=== PATIENT | female | born 1970 | race Caucasian/White ===

== ENCOUNTER 2019-03-28 13:22 | Emergency (ER) | payer OTHER ==
[~2019-03-28] VITALS: Ht 167.6 cm; Wt 102.1 kg
[~2019-03-28 13:22] MED LIST: BUPR150T8 PO; CLON1TAB11 PO; CYCL10TA2 PO; DICY10CA53 PO; GABA800T PO; LISI-334 PO; METF500T16 PO; METH20TA PO; METO10TA81 PO; METO50TA6 PO; ONDA4TAB7 PO; PANT40TA77 PO; PRED20TA PO; SERT100T PO; SUCR1TAB35 PO; TIZA4CAP3 PO; TRAM50TA PO; VENL75CA PO
--- NOTE | 2019-03-28 13:58 | PHYS DOC ---
Past Medical History Past Medical History: Asthma, Bipolar, Diabetes-Type II, Fibromyalgia, Hypertension, Other Additional Past Medical Histor: gastroporesis, overactive bladder Past Surgical History: , Other Additional Past Surgical Histo: ears, abd, left breast, right ACL and meniscus, Alcohol Use: None Drug Use: None Adult General Chief Complaint Chief Complaint: DIARRHEA HPI HPI 49-year-old female presenting to the emergency department today with a headache and watery stools over the past 2 days. She is chronically on doxycycline for the past 2 years approximately that she has been taking daily. She denies abdominal pain. She has had a few episodes of vomiting that is nonbilious and nonbloody. She denies fevers or chills. Her headache is similar to previous headaches and was not sudden in onset. She denies any neuro changes. Review of systems is negative for chest pain shortness of breath abdominal pain fevers chills. All other review of systems is negative unless otherwise noted in history of present illness. ED course: 49-year-old female presenting the emergency room today with headache and diarrhea. vitals show mild htn. Patient was given Reglan and Benadryl with fluids. Headache did not improve. Repeat dosing of Reglan and Benadryl. CT ab domen pelvis is negative. Head CT is negative. Workup unremarkable here in the emergency department. We'll discharge home to follow up with PCP in one to 2 days.The patient has been examined and was not found to have an emergency medical condition. The patient was then discharged home in stable condition to follow up with their primary care physician over the next 1-2 days. They were to return if their symptoms worsened or if they were concerned for any reason. They were also instructed to return to the emergency department if they were unable to get the recommended and appropriate follow-up. [id number] discharge instructions and return precautions were given. Patient's questions were an swered to their satisfaction. Patient is comfortable with plan. Review of Systems Review of Systems SEE ABOVE. Current Medications Current Medications Current Medications Medications (Trade) Dose Ordered Sig/Ruby Start Time Stop Time Status Last Admin Dose Admin Dexamethasone Sodium Phosphate (Decadron) 10 mg 1X ONCE 03/28/19 16:00 03/28/19 16:01 DC 03/28/19 16:03 10 MG Diphenhydramine HCl (Benadryl) 25 mg 1X ONCE 03/28/19 16:15 03/28/19 16:16 DC 03/28/19 15:50 25 MG Ketorolac Tromethamine (Toradol 15mg Vial) 15 mg 1X ONCE 03/28/19 16:15 03/28/19 16:16 DC 03/28/19 15:50 15 MG Metoclopramide HCl (Reglan Vial) 10 mg 1X ONCE 03/28/19 16:15 03/28/19 16:16 DC 03/28/19 15:50 10 MG Metoclopramide HCl (Reglan) 10 mg 1X ONCE 03/28/19 14:30 03/28/19 14:31 DC 03/28/19 14:22 10 MG Sodium Chloride 500 ml @ 500 mls/hr 1X ONCE 03/28/19 14:00 03/28/19 14:59 DC 03/28/19 14:22 500 MLS/HR Allergies Allergies Allergies Coded Allergies Type Severity Reaction Last Updated Verified hydralazine Allergy Unknown 03/28/19 Yes isosorbide Allergy Unknown 03/28/19 Yes sumatriptan Allergy Unknown 03/28/19 Yes zolmitriptan Allergy Unknown 03/28/19 Yes Physical Exam Physical Exam SEE ABOVE Constitutional: Well developed, well nourished, no acute distress, non-toxic appearance. [] HENT: Normocephalic, atraumatic, bilateral external ears normal, oropharynx moist, no oral exudates, nose normal. [] Eyes: PERRLA, EOMI, conjunctiva normal, no discharge. [] Neck: Normal range of motion, no tenderness, supple, no stridor. [] Cardiovascular:Heart rate regular rhythm, no murmur [] Lungs & Thorax: Bilateral breath sounds clear to auscultation [] Abdomen: Bowel sounds normal, soft, no tenderness, no masses, no pulsatile masses. nondistended. neg mcburneys point. neg murphys sign. Skin: Warm, dry, no erythema, no rash. [] Back: No tenderness, no CVA tenderness. [] Extremities: No tenderness, no cyanosis, no clubbing, ROM intact, no edema. [] Neurologic: Alert and oriented X 3, normal motor function, normal sensory fu nction, no focal deficits noted. [] Psychologic: Affect normal, judgement normal, mood normal. [] Current Patient Data Vital Signs Vital Signs Date Time Temp Pulse Resp B/P (MAP) Pulse Ox O2 Delivery O2 Flow Rate FiO2 03/28/19 15:30 61 15 157/94 (115) 98 03/28/19 13:50 98.1 98.1 Lab Values Laboratory Tests Test 03/28/19 14:05 03/28/19 15:45 White Blood Count 7.1 x10^3/uL (4.0-11.0) Red Blood Count 4.42 x10^6/uL (3.50-5.40) Hemoglobin 13.6 g/dL (12.0-15.5) Hematocrit 40.2 % (36.0-47.0) Mean Corpuscular Volume 91 fL (79-100) Mean Corpuscular Hemoglobin 31 pg (25-35) Mean Corpuscular Hemoglobin Concent 34 g/dL (31-37) Red Cell Distribution Width 14.4 % (11.5-14.5) Platelet Count 285 x10^3/uL (140-400) Neutrophils (%) (Auto) 64 % (31-73) Lymphocytes (%) (Auto) 23 % (24-48) L Monocytes (%) (Auto) 6 % (0-9) Eosinophils (%) (Auto) 6 % (0-3) H Basophils (%) (Auto) 1 % (0-3) Neutrophils # (Auto) 4.6 x10^3/uL (1.8-7.7) Lymphocytes # (Auto) 1.6 x10^3/uL (1.0-4.8) Monocytes # (Auto) 0.4 x10^3/uL (0.0-1.1) Eosinophils # (Auto) 0.5 x10^3/uL (0.0-0.7) Basophils # (Auto) 0.1 x10^3/uL (0.0-0.2) Sodium Level 137 mmol/L (136-145) Potassium Level 3.3 mmol/L (3.5-5.1) L Chloride Level 100 mmol/L (98-107) Carbon Dioxide Level 26 mmol/L (21-32) Anion Gap 11 (6-14) Blood Urea Nitrogen 18 mg/dL (7-20) Creatinine 0.9 mg/dL (0.6-1.0) Estimated GFR (Cockcroft-Gault) 66.0 BUN/Creatinine Ratio 20 (6-20) Glucose Level 91 mg/dL (70-99) Calcium Level 10.0 mg/dL (8.5-10.1) Total Bilirubin 0.3 mg/dL (0.2-1.0) Aspartate Amino Transferase (AST) 20 U/L (15-37) Alanine Aminotransferase (ALT) 19 U/L (14-59) Alkaline Phosphatase 158 U/L (46-116) H Total Protein 7.3 g/dL (6.4-8.2) Albumin 3.4 g/dL (3.4-5.0) Albumin/Globulin Ratio 0.9 (1.0-1.7) L Lipase 78 U/L (73-393) Serum Test, Qualitative Negative (NEG) Urine Collection Type Unknown Urine Color Yellow Urine Clarity Clear Urine pH 5.5 Urine Specific [place] 1.025 Urine Protein Negative mg/dL (NEG-TRACE) Urine Glucose (UA) Negative mg/dL (NEG) Urine Ketones (Stick) Negative mg/dL (NEG) Urine Blood Negative (NEG) Urine Nitrite Negative (NEG) Urine Bilirubin Negative (NEG) Urine Urobilinogen Dipstick 1.0 mg/dL (0.2 mg/dL) Urine Leukocyte Esterase Trace (NEG) Urine RBC Rare /HPF (0-2) Urine WBC 1-4 /HPF (0-4) Urine Squamous Epithelial Cells Few /LPF Urine Bacteria Few /HPF (0-FEW) Laboratory Tests 03/28/19 14:05 Laboratory Tests 03/28/19 14:05 EKG EKG [] Radiology/Procedures Radiology/Procedures [] Course & Med Decision Making Course & Med Decision Making Pertinent Labs and Imaging studies reviewed. (See chart for details) [] Dragon Disclaimer Dragon Disclaimer This electronic medical record was generated, in whole or in part, using a voice recognition dictation system. Departure Departure Impression: Primary Impression: Diarrhea Additional Impression: Headache Disposition: 01 HOME, SELF-CARE Condition: STABLE Referrals: DONALDO DURAN MD (PCP) Patient Instructions: Diarrhea, General Headache Without Cause Additional Instructions: Thank you for allowing us to participate in your care today. Return to the emergency department you have any new or worsening symptoms, or if you are concerned for any reason. Return to emergency department if you have any new or concerning symptoms including but not limited to fever, chills, nausea, vomiting, intractable pain, any new rashes, chest pain, shortness of air, uncontrolled bleeding, difficulty breathing, and/or vision loss. Follow up with your primary care physician within 1-2 days. Call your Primary Doctor tomorrow and inform them of your visit today. If you do not have a primary care provider we are happy to provide you with a list of our primary care providers contact information. This condition should be evaluated by your primary care physician and any recommended consulting services for continued management within 2 days after discharge. If at any time, you are having difficulty getting into your primary care doctor or a specialist, return to the emergency department. Problem Qualifiers SHERWIN THOMPSON MD Mar 28, 2019 13:58
[2019-03-28] MEDS ORDERED: IV NORMAL SALINE 500ML BAG 500 ML IV ONE (14:00)
[2019-03-28 14:13] LABS: BASO # 0.1 x10^3/uL (0.0-0.2); BASO % 1 % (0-3); EOS # 0.5 x10^3/uL (0.0-0.7); EOS % 6 % (0-3); HEMATOCRIT 40.2 % (36.0-47.0); HEMOGLOBIN 13.6 g/dL (12.0-15.5); LYMPH # 1.6 x10^3/uL (1.0-4.8); LYMPH % 23 % (24-48); MEAN CORPUSCULAR HEMOGLOBIN 31 pg (25-35); MEAN CORPUSCULAR HGB CONC 34 g/dL (31-37); MEAN CORPUSCULAR VOLUME 91 fL (79-100); MONO # 0.4 x10^3/uL (0.0-1.1); MONO % 6 % (0-9); NEUT # 4.6 x10^3/uL (1.8-7.7); NEUT % 64 % (31-73); PLATELET COUNT 285 x10^3/uL (140-400); RED BLOOD COUNT 4.42 x10^6/uL (3.50-5.40); RED CELL DISTRIBUTION WIDTH 14.4 % (11.5-14.5); WHITE BLOOD COUNT 7.1 x10^3/uL (4.0-11.0)
[2019-03-28 14:22] LABS: CREATININE 0.9 mg/dL (0.6-1.0); POTASSIUM 3.3 mmol/L (3.5-5.1)
[2019-03-28 14:24] LABS: PREG TEST PT QUAL NEGATIVE (NEG)
[2019-03-28 14:28] LABS: ALBUMIN 3.4 g/dL (3.4-5.0); ALBUMIN/GLOBULIN RATIO 0.9 (1.0-1.7); TOTAL BILIRUBIN 0.3 mg/dL (0.2-1.0); TOTAL PROTEIN 7.3 g/dL (6.4-8.2)
[2019-03-28] MEDS ORDERED: diphenhydrAMINE 50 MG/ML VIAL IVP ONE ×2 (14:30→16:15)
[2019-03-28] MEDS ORDERED: METOCLOPRAMIDE 10 MG TABLET. PO ONE (14:30)
--- NOTE | 2019-03-28 14:37 | RAD ---
CT abdomen pelvis without contrast. HISTORY: Diarrhea and vomiting CT scan the abdomen pelvis was done without contrast. Comparison is made with a study from January 2015. Right lung bases clear. There is elevation of the left diaphragm. There is atelectasis in the left lung base although infiltrate is possible. There is no pleural effusion. A liver lesion is not identified. The patient's had a cholecystectomy. Spleen and adrenal glands are normal. There is a tiny calculus at the lower pole of the left kidney. There is no hydronephrosis in the kidneys. There is a smaller right renal calculus as well. There is no adenopathy. There is no free air. Patient's had a gastric bypass. There is no bowel obstruction. Appendix is normal. Uterus and ovaries are unremarkable. There is an old lumbar compression fracture. 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 IMPRESSION: 1. Elevated left diaphragm. 2. Atelectasis left lung base. 3. Previous gastric bypass. 4. No bowel obstruction. 5. Tiny intrarenal calculi without a ureteral calculus or hydronephrosis. Electronically signed by: Vipin Gordillo MD (03/28/2019 2:34 PM) [facility]
[2019-03-28 15:30] VITALS: BP 157/94
[2019-03-28 15:53] LABS: BILIRUBIN,URINE NEGATIVE (NEG); CLARITY,URINE CLEAR; COLOR,URINE YELLOW; NITRITE,URINE NEGATIVE (NEG); PH,URINE 5.5; PROTEIN,URINE NEGATIVE (NEG-TRACE)
[2019-03-28] MEDS ORDERED: DEXAMETHASONE SOD PHOS 20 MG/5 ML VIAL. IV ONE (16:00)
[2019-03-28 16:15] LABS: BACTERIA,URINE FEW /HPF (0-FEW); RBC,URINE RARE /HPF (0-2); SQUAMOUS EPITHELIAL CELL,UR FEW /LPF
[2019-03-28] MEDS ORDERED: KETOROLAC 15 MG/ML VIAL. IV ONE (16:15)
[2019-03-28] MEDS ORDERED: METOCLOPRAMIDE HCL 10 MG/2 ML VIAL. IV ONE (16:15)
--- NOTE | 2019-03-28 16:35 | RAD ---
CT HEAD WO CONTRAST Indication: Headache Exposure: One or more of the following individualized dose reduction techniques were utilized for this examination: 1. Automated exposure control 2. Adjustment of the mA and/or kV according to patient size 3. Use of iterative reconstruction technique. Technique: Standard imaging without intravenous contrast. No prior study for comparison. No evidence of acute intracranial hemorrhage, mass effect, midline shift or abnormal extra-axial fluid collection. Monae-white matter distinction is intact. The ventricle and sulci appear unremarkable. Orbits appear symmetric. No significant scalp swelling or hematoma. Partially visualized sinuses are clear. No bone destruction. IMPRESSION: No evidence of acute intracranial hemorrhage. Electronically signed by: Surendra Brewster MD (03/28/2019 4:32 PM) [facility]
== END 2019-03-28 19:00 | disposition home or self-care (01) ==
LOC: ER 13:22
DX: R19.7 Diarrhea, unspecified (principal); R51 Headache; E11.9 Type 2 diabetes mellitus without complications; I10 Essential (primary) hypertension; F31.9 Bipolar disorder, unspecified; J45.909 Unspecified asthma, uncomplicated; Z88.8 Allergy status to other drugs, medicaments and biological substances
CPT/HCPCS: 36415; 70450; 74176; 80053; 81001; 83690; 84703; 85025; 87086; 96361; 96374; 96375; 96376; 99285; J1100; J1200; J1885; J2765; J7040; J8597

== ENCOUNTER 2019-05-04 16:31 | Emergency (ER) | payer OTHER, MEDICAID ==
[~2019-05-04] VITALS: Ht 167.6 cm; Wt 95.3 kg
[~2019-05-04 16:31] MED LIST changes: -CLON1TAB11 PO; +CLONAZEPAM1 MG PO
[2019-05-04] MEDS ORDERED: HYDROcodone/APAP 5/325MG 1 TAB TABLET PO ONE (17:45)
--- NOTE | 2019-05-04 18:21 | RAD ---
Three-view right ankle and 3V left wrist HISTORY: Pain after a fall 3V right ankle No evidence of an acute fracture. Joint spaces and alignment appear intact. No significant soft tissue abnormality. There may be a small tibiotalar joint effusion. Small plantar calcaneal enthesophyte is seen. 3 view left wrist: Fracture of the distal radius involving the metaphysis to the articular surface. Mild impaction at fracture site. There is dorsal angulation of the distal radial articular surface. Combination at the posterior articular edge. Minimal lateral displacement of the fracture. Transverse fracture at the base of the ulnar styloid. No gross dislocation. Bone demineralization. IMPRESSION: 1. Comminuted intra-articular fracture of the distal radius with mild displacement and depression. 2. Ulnar styloid fracture. 3. No definite fracture at the ankle. There may be a small tibiotalar joint effusion. If symptoms persist, recommend follow-up radiographs or MRI. Electronically signed by: Surendra Brewster MD (05/04/2019 6:18 PM) [facility]
--- NOTE | 2019-05-04 18:49 | PHYS DOC ---
Past Medical History Past Medical History: Asthma, Bipolar, CHF, Diabetes-Type II, Fibromyalgia, Hypertension, Other Additional Past Medical Histor: gastroporesis, overactive bladder, "paralyzed L diaphraghm" (VICTORIA ANAND APRN) Past Surgical History: Cholecystectomy, , Gastric Bypass, Pacemaker, Other Additional Past Surgical Histo: left breast, right ACL and meniscus, defib/pacemaker (VICTORIA ANAND APRN) Alcohol Use: None Drug Use: None (VICTORIA ANAND APRN) Adult General Chief Complaint Chief Complaint: WRIST PAIN HPI HPI Patient is a 49 year old female who presents to the ED today to be evaluated for 9 out of 10 sharp and constant left wrist pain as well as mild right ankle pain that began today after she fell. Patient denies any loss of consciousness when she fell. She states she breast herself with her left hand. Patient states the pain is worse on the left wrist especially on range of motion. (VICTORIA ANAND APRN) Review of Systems Review of Systems Constitutional: Denies fever or chills [] Eyes: Denies change in visual acuity, redness, or eye pain [] HENT: Denies nasal congestion or sore throat [] Respiratory: Denies cough or shortness of breath [] Cardiovascular: No additional information not addressed in HPI [] GI: Denies abdominal pain, nausea, vomiting, bloody stools or diarrhea [] : Denies dysuria or hematuria [] Musculoskeletal: Reports left wrist pain and right ankle pain Integument: Denies rash or skin lesions [] Neurologic: Denies headache, focal weakness or sensory changes [] All other systems were reviewed and found to be within normal limits, except as documented in this note. (VICTORIA NAAND APRN) Current Medications Current Medications Current Medications Medications (Trade) Dose Ordered Sig/Ruby Start Time Stop Time Status Last Admin Dose Admin Acetaminophen/ Hydrocodone Bitart (Lortab 5/325) 2 tab 1X ONCE 05/04/19 17:45 05/04/19 17:46 DC 05/04/19 17:57 2 TAB Etomidate (Amidate) 10 mg 1X ONCE 05/04/19 19:30 05/04/19 19:31 DC 05/04/19 20:22 10 MG Fentanyl Citrate (Fentanyl 2ml Vial) 50 mcg 1X ONCE 05/04/19 22:30 05/04/19 22:23 DC 05/04/19 22:13 50 MCG Sodium Chloride 1,000 ml @ 1,000 mls/hr 1X ONCE 05/04/19 19:30 05/04/19 20:29 DC 05/04/19 19:38 1,000 MLS/HR (SURENDRA GRIFFITH DO) Allergies Allergies Allergies Coded Allergies Type Severity Reaction Last Updated Verified hydralazine Allergy Intermediate 05/04/19 Yes isosorbide Allergy Intermediate 05/04/19 Yes sumatriptan Allergy Intermediate 05/04/19 Yes zolmitriptan Allergy Intermediate 05/04/19 Yes (SURENDRA GRIFFITH DO) Physical Exam Physical Exam Constitutional: Well developed, well nourished, no acute distress, non-toxic appearance. [] HENT: Normocephalic, atraumatic, bilateral external ears normal, oropharynx moist, no oral exudates, nose normal. [] Eyes: PERRLA, EOMI, conjunctiva normal, no discharge. [] Neck: Normal range of motion, no tenderness, supple, no stridor. [] Cardiovascular:Heart rate regular rhythm, no murmur [] Lungs & Thorax: Bilateral breath sounds clear to auscultation [] Abdomen: Bowel sounds normal, soft, no tenderness, no masses, no pulsatile masses. [] Skin: Warm, dry, no erythema, no rash. [] Back: No tenderness, no CVA tenderness. [] Extremities: Left wrist appears obviously deformed. Limited range of motion to the left wrist. Moderate tenderness throughout the ventral aspect of the wrist. Adequate radial, medial, ulnar sensation to the left fingers. +2 left radial pulse. Cap refill less than 2 seconds the left fingers. Right ankle with no obvious deformity. Full range of motion to the right ankle and foot. +2 right pedal pulse. Cap refill less than 2 seconds the right fingers. Neurologic: Alert and oriented X 3, normal motor function, normal sensory function, no focal deficits noted. [] Psychologic: Affect normal, judgement normal, mood normal. [] (VICTORIA ANAND APRN) Physical Exam Constitutional: Well developed, well nourished, uncomfortable HENT: Normocephalic, atraumatic, oropharynx moist Cardiovascular: Heart rate normal and regular rhythm Lungs & Thorax: Bilateral breath sounds clear to auscultation, no respiratory distress Skin: Warm, dry, no erythema Extremities: left wrist tenderness, ROM impaired due to pain, radial pulse +2, CR < 2 sec, swelling/ecchymosis and deformity noted. Neurologic: Alert and oriented X 3, no focal deficits noted Psychologic: Affect normal, judgement normal (SURENDRA GRIFFITH DO) Current Patient Data Vital Signs Vital Signs Date Time Temp Pulse Resp B/P (MAP) Pulse Ox O2 Delivery O2 Flow Rate FiO2 05/04/19 22:13 20 100 Room Air 05/04/19 21:23 62 183/93 (123) 05/04/19 20:22 2.0 05/04/19 20:18 98.6 98.7 98.6 (SURENDRA GRIFFITH DO) EKG EKG [] (VICTORIA ANAND APRN) Radiology/Procedures Radiology/Procedures []PROCEDURE: WRIST 3V LEFT Three-view right ankle and 3V left wrist HISTORY: Pain after a fall 3V right ankle No evidence of an acute fracture. Joint spaces and alignment appear intact. No significant soft tissue abnormality. There may be a small tibiotalar joint effusion. Small plantar calcaneal enthesophyte is seen. 3 view left wrist: Fracture of the distal radius involving the metaphysis to the articular surface. Mild impaction at fracture site. There is dorsal angulation of the distal radial articular surface. Combination at the posterior articular edge. Minimal lateral displacement of the fracture. Transverse fracture at the base of the ulnar styloid. No gross dislocation. Bone demineralization. IMPRESSION: 1. Comminuted intra-articular fracture of the distal radius with mild displacement and depression. 2. Ulnar styloid fracture. 3. No definite fracture at the ankle. There may be a small tibiotalar joint effusion. If symptoms persist, recommend follow-up radiographs or MRI. Electronically signed by: Surendra Brewster MD (05/04/2019 6:18 PM) [facility] DICTATED and SIGNED BY: SURENDRA BREWSTER MD DATE: 05/04/191817 (VICTORIA ANAND APRN) Radiology/Procedures PROCEDURE: FOREARM LEFT Left forearm 2 views. HISTORY: Post reduction distal radius fracture 2 views were taken of the left forearm. There is a fracture the distal radius. There is been a mild improvement in the angulation. There is still cortex width of dorsal displacement on the lateral view. There is still slight angulation on the AP view with mild improvement. The forearm is in a splint. There is a displaced ulnar styloid fracture without change. IMPRESSION: 1. Mild improvement in the alignment post reduction. 2. Forearm is in a splint. Electronically signed by: Vipin Gordillo MD (05/05/2019 3:54 AM) [facility] (SURENDRA GRIFFITH DO) Course & Med Decision Making Course & Med Decision Making Pertinent Labs and Imaging studies reviewed. (See chart for details) This is a 49-year-old female patient presenting to the ED today with left wrist and right ankle pain status post falling. Right ankle x-rays interpreted by radiologist were negative for any acute findings. Left wrist x-rays were noted for-Comminuted intra-articular fracture of the distal radius with mild displacement and depression.Ulnar styloid fracture. Spoke with Dr. Amador-he requested we reduced the wrist and discharge patient to home and she can follow-up in the clinic. did the reduction. Patient as d/c t home (VICTORIA ANAND APRN) Dragon Disclaimer Dragon Disclaimer This electronic medical record was generated, in whole or in part, using a voice recognition dictation system. (VICTORIA ANAND APRN) Departure Departure Impression: Primary Impression: Fall Additional Impressions: Distal radius fracture, left Closed fracture of styloid process of left ulna Disposition: 01 HOME, SELF-CARE Condition: STABLE Referrals: DONALDO DURAN MD (PCP) JUSTIN AMADOR MD Call his office tomorrow and set up a follow-up appointment Patient Instructions: Radius Fracture with [facility], Ulnar Fracture Additional Instructions: You were seen for left wrist fractures, please contact the provided orthopedic doctor tomorrow morning and set up a follow-up appointment. Try to ice and elevate the extremity. Scripts Hydrocodone/Apap 5-325 (NORCO 5-325 TABLET) 1 Each Tablet 1 TAB PO Q6HRS, #25 TAB Prov: VICTORIA ANAND APRN 05/04/19 MODERATE SEDATION ASSESSMENT* RISKS/ALTERNATIVES Risks/Alternatives Risks and alternatives of this type of sedation and procedure discussed with: RISK/ALTERNATIVES: Patient (SURENDRA GRIFFITH DO) H & P ON CHART H & P H & P on chart and reviewed for co-morbid conditions and appropriate labs. H&P ON CHART: Yes (SURENDRA GRIFFITH DO) STATUS PREG STATUS ASSESSED: Yes (Reports menopause) (SURENDRA GRIFFITH DO) MEDS/ALLERGIES REVIEWED Meds/Allergies Reviewed Medications and Allergies including time and route of recently administered narcotics and sedatives. MEDS/ALLERGIES REVIEWED: Yes (SURENDRA GRIFFITH DO) ASA RATING ASA RATING: III (SURENDRA GRIFFITH DO) AIRWAY ASSESSMENT Airway Assessment Airway patency, oral function limitations, presence of caps, crowns, dentures, partials, and ability to extend neck assessed. AIRWAY ASSESSMENT: Yes (SURENDRA GRIFFITH DO) MALLAMPATI SCORE MALLAMPATI SCORE: III (SURENDRA GRIFFITH DO) PRE-SEDATION ASSESSMENT PRE-SEDATION ASSESSMENT: Yes (SURENDRA GRIFFITH DO) Splinting Splinting : Location: Left wrist Hand-Made Type: orthoglass Splint: sugar-tong Pre-Proc Neuro Vasc Exam: normal Post-Proc Neuro Vasc Exam: normal, unchanged from pre-exam (SURENDRA GRIFFITH DO) Additional Procedures Progress Fracture reduction under moderate sedation: Written consent obtained. Time out performed. Monitors including pulse ox, cardiac, blood pressure, and ETCO2 in place. Empiric supplemental O2 provided at 2L NC. IVF hydration given with normal saline. Sedation initiated with 100mcg of Fentanyl followed by 10mg of Etomidate (which I personally pushed). Appropriate sedation was achieved and left wrist was manipulated with traction provided with interval improvement of deformity. Sugar tong splint then applied after stockinette and adequate padding were provided. DOROTHEA wraps applied and wrist kept in anatomical position until Orthoglass was hardened. Patient given additional 100mcg of Fentanyl during splint as she awoke and complained of pain. Patient tolerated procedure well and without complication. NO reversal agent was required. (SURENDRA GRIFFITH DO) Attending Signature Attending Signature I have personally interviewed and examined the patient. All charts, labs, and imaging studies were reviewed. I agree with the PA/NEUROLOGY TECHNICIAN's findings, exam, and plan. (SURENDRA GRIFFITH DO) Problem Qualifiers Primary Impression: Fall Encounter type: initial encounter Qualified Codes: W19.XXXA - Unspecified fall, initial encounter Additional Impressions: Distal radius fracture, left Encounter type: initial encounter Fracture type: closed Fracture morphology: unspecified fracture morphology Qualified Codes: S52.502A - Unspecified fracture of the lower end of left radius, initial encounter for closed fracture Closed fracture of styloid process of left ulna Encounter type: initial encounter Fracture alignment: displaced Qualified Codes: S52.612A - Displaced fracture of left ulna styloid process, initial encounter for closed fracture VICTORIA ANAND APRN May 04, 2019 18:49 SURENDRA GRIFFITH DO May 06, 2019 04:14
[2019-05-04] MEDS ORDERED: ETOMIDATE 20 MG/10 ML VIAL. IV ONE (19:30)
[2019-05-04] MEDS ORDERED: fentaNYL PF VIAL 100 MCG/2 ML VIAL IV ONE ×3 (19:30→22:30)
[2019-05-04] MEDS ORDERED: IV NORMAL SALINE 1000ML BAG 1,000 ML IV ONE (19:30)
[2019-05-04 20:18] VITALS: BP 166/85
[2019-05-04 21:23] VITALS: BP 183/93
[2019-05-04] MEDS ORDERED: HYDR-3164 PO (21:40)
--- NOTE | 2019-05-05 03:57 | RAD ---
Left forearm 2 views. HISTORY: Post reduction distal radius fracture 2 views were taken of the left forearm. There is a fracture the distal radius. There is been a mild improvement in the angulation. There is still cortex width of dorsal displacement on the lateral view. There is still slight angulation on the AP view with mild improvement. The forearm is in a splint. There is a displaced ulnar styloid fracture without change. IMPRESSION: 1. Mild improvement in the alignment post reduction. 2. Forearm is in a splint. Electronically signed by: Vipin Gordillo MD (05/05/2019 3:54 AM) [facility]
[2019-05-07] MEDS ORDERED: CLON0.2T PO (17:26)
[2019-05-07] MEDS ORDERED: HYDR-3135 PO (17:26)
[2019-05-07] MEDS ORDERED: POLY2500 PO (17:26)
[2019-05-07] MEDS ORDERED: CARV12.511 PO (17:26)
[2019-05-07] MEDS ORDERED: OXYC5CAP PO (17:27)
[2019-05-07] MEDS ORDERED: TIZA4TAB8 PO (17:27)
[2019-05-07] MEDS ORDERED: FURO40TA4 PO (17:27)
[2019-05-07] MEDS ORDERED: SACU1TAB4 PO (17:27)
[2019-05-07] MEDS ORDERED: BUDE10.22 IH (17:27)
[2019-05-07] MEDS ORDERED: ALBU2.5V8 INH (17:27)
[2019-05-07] MEDS ORDERED: ERGO500027 PO (17:27)
[2019-05-07] MEDS ORDERED: OXCA150T3 PO (17:27)
[2019-05-07] MEDS ORDERED: ONDA4TAB7 PO (17:27)
[2019-05-07] MEDS ORDERED: SPIR25TA5 PO (17:27)
[2019-05-07] MEDS ORDERED: PROM25TA10 PO (17:27)
[2019-05-07] MEDS ORDERED: POTA20TA82 PO (17:27)
[2019-05-07] MEDS ORDERED: CLONAZEPAM1 MG PO (17:27)
[2019-05-07] MEDS ORDERED: PREG150C PO (17:27)
== END 2019-05-04 21:49 | disposition home or self-care (01) ==
LOC: ER 16:31
DX: S52.612A Displaced fracture of left ulna styloid process, initial encounter for closed fracture (principal); S52.572A Other intraarticular fracture of lower end of left radius, initial encounter for closed fracture; M25.571 Pain in right ankle and joints of right foot; J45.909 Unspecified asthma, uncomplicated; F31.9 Bipolar disorder, unspecified; I50.9 Heart failure, unspecified; I11.0 Hypertensive heart disease with heart failure; E11.9 Type 2 diabetes mellitus without complications; Z90.49 Acquired absence of other specified parts of digestive tract; Z98.890 Other specified postprocedural states; Z95.0 Presence of cardiac pacemaker; Z88.8 Allergy status to other drugs, medicaments and biological substances; W18.39XA Other fall on same level, initial encounter; Y93.89 Activity, other specified; Y92.89 Other specified places as the place of occurrence of the external cause; Y99.8 Other external cause status
CPT/HCPCS: 25605; 73090; 73110; 73610; 99285; J3010; J7030

== ENCOUNTER 2019-05-08 12:36 | Day surgery (SDC) | payer MEDICAID, OTHER ==
[~2019-05-08 12:36] MED LIST changes: +ALBU2.5V8 INH; +BUDE10.22 IH; +BUPIVACAINE-EPI 0.25%-1:200000 MPF 30 ML VIAL. INJ ONE; +CARV12.511 PO; +CLON0.2T PO; +ERGO500027 PO; +FURO40TA4 PO; +HYDR-3135 PO; +HYDR-3164 PO; +HYDROmorphone 2 MG/ML VIAL IV PRN; +IV RINGERS,LACTATED 1000ML 1,000 ML IV SCH; +LIDOCAINE 1% PF 2 ML VIAL. ID PRN; +ONDANSETRON PF 4 MG/2 ML VIAL. IV PRN; +OXCA150T3 PO; +OXYC5CAP PO; +POLY2500 PO; +POTA20TA82 PO; +PREG150C PO; +PROCHLORPERAZINE 10 MG/2 ML VIAL. IV PRN; +PROM25TA10 PO; +SACU1TAB4 PO; +SPIR25TA5 PO; +TIZA4TAB8 PO; +fentaNYL PF VIAL 100 MCG/2 ML VIAL IV PRN
[2019-05-08] MEDS ORDERED: LIDOCAINE 2% PF 5 ML VIAL. ONE (13:26)
[2019-05-08] MEDS ORDERED: DEXAMETHASONE SOD PHOS 4 MG/ML VIAL ONE (13:26)
[2019-05-08] MEDS ORDERED: PROPOFOL 20 ML IV ONE (13:26)
[2019-05-08] MEDS ORDERED: ONDANSETRON PF 4 MG/2 ML VIAL. ONE (13:26)
[2019-05-08] MEDS ORDERED: fentaNYL PF VIAL 100 MCG/2 ML VIAL ONE (13:26)
[2019-05-08] MEDS ORDERED: SUCCINYLCHOLINE 200 MG/10 ML VIAL. ONE (13:26)
[2019-05-08] MEDS ORDERED: FAMOTIDINE 20 MG/2 ML VIAL ONE (13:26)
--- NOTE | 2019-05-08 13:55 | PDOC1 ---
History and Physical Date of Admission Date of Admission DATE: 05/08/19 TIME: 13:50 Identification/Chief Complaint Chief Complaint left wrist fracture Source Source: Chart review, Patient History of Present Illness History of Present Illness Ms. Luna is a 49-year-old female who presents with a left wrist injury. She is on disability for low back pain and heart problems. She was seen in the ED on 05/04/19 following a fall. Probable FOOSH injury. She feels numbness and tingling in her fingers. She has a TRADE CLERK-Pacemaker (biventricular). She is currently taking hydrocodone for pain. Her upper tier is Dr. Jordan at [facility]. Past Medical History Past Medical History hypertension, anxiety, depression, diabetes mellitus, autoimmune disorder, fibromyalgia, cardiomyopathy Cardiovascular: CHF, HTN Psych: Anxiety, Depression Rheumatologic: Fibromyalgia Endocrine: Diabetes Past Surgical History Past Surgical History ear surgery , cholecystectomy , section , lumpectomy, left breast , ACL Repair , knee surgery Past Surgical History: Cholecystectomy, Family History Family History Mother: , diabetes depression hypertension Father: , diabetes heart disease Family History: Depression, Diabetes, Heart Disease, Hypertension Social History Smoke: No ALCOHOL: none Current Medications Current Medications Current Medications Ondansetron HCl (Zofran) 4 mg PRN Q6HRS PRN IV NAUSEA/VOMITING; Start 05/08/19 at 07:30; Stop 05/08/19 at 20:00 Fentanyl Citrate (Fentanyl 2ml Vial) 25 mcg PRN Q5MIN PRN IV MILD PAIN 1-3; Start 05/08/19 at 07:30; Stop 05/08/19 at 20:00 Fentanyl Citrate (Fentanyl 2ml Vial) 50 mcg PRN Q5MIN PRN IV MODERATE TO SEVERE PAIN; Start 05/08/19 at 07:30; Stop 05/08/19 at 20:00 Morphine Sulfate (Morphine Sulfate) 1 mg PRN Q10MIN PRN IV SEVERE PAIN 7-10; Start 05/08/19 at 07:30; Stop 05/08/19 at 20:00 Ringer's Solution 1,000 ml @ 30 mls/hr Q24H IV ; Start 05/08/19 at 07:22; Stop 05/08/19 at 19:21 Lidocaine HCl (Xylocaine-Mpf 1% 2ml Vial) 2 ml PRN 1X PRN ID PRIOR TO IV START; Start 05/08/19 at 07:30; Stop 05/08/19 at 20:00 Hydromorphone HCl (Dilaudid) 0.5 mg PRN Q10MIN PRN IV SEV PAIN, Second choice; Start 05/08/19 at 07:30; Stop 05/08/19 at 20:00 Prochlorperazine Edisylate (Compazine) 5 mg PACU PRN PRN IV NAUSEA, MRX1; Start 05/08/19 at 07:30; Stop 05/08/19 at 20:00 Bupivacaine HCl/ Epinephrine Bitart (Sensorcaine-Epi 0.25%-1:[id number] Mpf) 30 ml 1X ONCE INJ ; Start 05/08/19 at 09:45; Stop 05/08/19 at 09:46; Status DC Cefazolin Sodium/ Dextrose 50 ml @ 100 mls/hr 1X PREOP PRN IV PRIOR TO PROCEDURE; Start 05/08/19 at 11:00; Stop 05/09/19 at 10:59 Propofol 20 ml @ As Directed STK-MED ONCE IV ; Start 05/08/19 at 13:26; Stop 05/08/19 at 13:26; Status DC Dexamethasone Sodium Phosphate (Decadron) 4 mg STK-MED ONCE .ROUTE ; Start 05/08/19 at 13:26; Stop 05/08/19 at 13:26; Status DC Famotidine (Pepcid Vial) 20 mg STK-MED ONCE .ROUTE ; Start 05/08/19 at 13:26; Stop 05/08/19 at 13:26; Status DC Lidocaine HCl (Lidocaine Pf 2% Vial) 5 ml STK-MED ONCE .ROUTE ; Start 05/08/19 at 13:26; Stop 05/08/19 at 13:26; Status DC Ondansetron HCl (Zofran) 4 mg STK-MED ONCE .ROUTE ; Start 05/08/19 at 13:26; Stop 05/08/19 at 13:26; Status DC Succinylcholine Chloride (Anectine) 200 mg STK-MED ONCE .ROUTE ; Start 05/08/19 at 13:26; Stop 05/08/19 at 13:26; Status DC Fentanyl Citrate (Fentanyl 2ml Vial) 100 mcg STK-MED ONCE .ROUTE ; Start 05/08/19 at 13:26; Stop 05/08/19 at 13:27; Status DC Active Scripts Active Reported Clonazepam 1 Mg Tablet 1 Mg PO TID Entresto 97 mg-103 mg Tablet (Sacubitril/Valsartan) 1 Each Tablet 1 Each PO DAILY Promethazine Hcl 25 Mg Tablet 25 Mg PO Q6H PRN Oxycodone Hcl 5 Mg Capsule 15 Mg PO PRN Q6HRS PRN Zofran (Ondansetron Hcl) 4 Mg Tablet 1 Tab PO PRN Q6-8HRS PRN Lyrica (Pregabalin) 150 Mg Capsule 150 Mg PO BID 30 Days Symbicort 80-4.5 Mcg Inhaler (Budesonide/Formoterol Fumarate) 10.2 Gm Hfa.aer.ad 1 Puff IH BID Proair Hfa (Albuterol Sulfate) 8.5 Gm Hfa.aer.ad 2 Puff INH PRN Q6HRS PRN Spironolactone 25 Mg Tablet 25 Mg PO BID Zanaflex (Tizanidine Hcl) 4 Mg Tablet 4 Mg PO TID PRN Vitamin D2 (Ergocalciferol (Vitamin D2)) 50,000 Unit Capsule 50,000 Unit PO TWICE WEEKLY Potassium Chloride 20 Meq Tablet.er 20 Meq PO DAILY Furosemide 40 Mg Tablet 40 Mg PO DAILY Trileptal (Oxcarbazepine) 150 Mg Tablet 150 Mg PO BID Polyethylene Glycol 3350 2,500 Gm Powder 17 Gm PO PRN DAILY PRN Carvedilol (Carvedilol) 12.5 Mg Tablet 12.5 Mg PO BIDWMEALS [place] 10-325 Tablet (Acetaminophen/Hydrocodone Bitart) 1 Each Tablet 1 Tab PO QID Clonidine Hcl 0.2 Mg Tablet 0.2 Mg PO DAILY Effexor Xr (Venlafaxine Hcl) 75 Mg Cap.er.24h 100 Mg PO BID Protonix (Pantoprazole Sodium) 40 Mg Tablet.dr 40 Mg PO Allergies Allergies: Coded Allergies: hydralazine (Verified Allergy, Intermediate, 05/04/19) isosorbide (Verified Allergy, Intermediate, 05/04/19) sumatriptan (Verified Allergy, Intermediate, 05/04/19) zolmitriptan (Verified Allergy, Intermediate, 05/04/19) adhesive tape (Verified Adverse Reaction, Intermediate, Rash, 05/07/19) "PLASTIC TAPE" ROS General: No: Chills, Night Sweats PSYCHOLOGICAL ROS: YES: Anxiety, Depression Respiratory: YES: Other (CHF stable with advanced pacemaker); No: Cough Cardiovascular: No Paroxysmal Noc. Dyspnea Gastrointestinal: No Nausea, No Vomiting Physical Exam General: Alert, Cooperative HEENT: Atraumatic Lungs: Normal air movement Abdomen: Soft Extremities: No clubbing, No cyanosis, Other (The LEFT wrist is in a splint which was kept on for the exam. Probable deformity. There is swelling at the wrist area. There is tenderness at the wrist. Motion is decreased but there is no evidence of specific neurovascular injury. Capillary refill is normal. Pulse is not assessable due to the tenderness of the wrist. Light touch sensation is intact. Motor function is present for the radial ulnar and median nerves. There is no tenderness at the elbow. The skin is intact over the fracture but there is some ecchymosis.) Images Images Report reviewed, images independently reviewed.[facility] [address] [place] [address] IMAGING REPORT Signed PATIENT: CAROLINA LUNA ACCOUNT: [id number] : 1970 LOCATION: ER AGE: 49 SEX: F EXAM STATUS: REG ER ORD. PHYSICIAN: VICTORIA ANAND APRN REASON: fall pain PROCEDURE: WRIST 3V LEFT Three-view right ankle and 3V left wrist HISTORY: Pain after a fall 3V right ankle No evidence of an acute fracture. Joint spaces and alignment appear intact. No significant soft tissue abnormality. There may be a small tibiotalar joint effusion. Small plantar calcaneal enthesophyte is seen. 3 view left wrist: Fracture of the distal radius involving the metaphysis to the articular surface. Mild impaction at fracture site. There is dorsal angulation of the distal radial articular surface. Combination at the posterior articular edge. Minimal lateral displacement of the fracture. Transverse fracture at the base of the ulnar styloid. No gross dislocation. Bone demineralization. IMPRESSION: 1. Comminuted intra-articular fracture of the distal radius with mild displacement and depression. 2. Ulnar styloid fracture. 3. No definite fracture at the ankle. There may be a small tibiotalar joint effusion. If symptoms persist, recommend follow-up radiographs or MRI. Electronically signed by: Surendra Brewster MD (05/04/2019 6:18 PM) [facility] DICTATED and SIGNED BY: SURENDRA BREWSTER MD DATE: 05/04/191817. VTE Prophylaxis Ordered VTE Prophylaxis Devices: Yes VTE Pharmacological Prophylaxi: Yes Assessment/Plan Assessment/Plan We reviewed the possible treatment options. I recommended surgery. We discussed potential risks of ORIF surgery, including risks of bleeding, infection, malunion, nonunion, potential need for hardware removal, neurovascular injury, tendon injury or other potential surgical or anesthetic complications. All of her questions were answered and she desires to proceed with surgery, tentatively scheduled for 05/08/19. We also discussed postoperative treatment and expectations. She would like to proceed with surgery (CPT 11519). JUSTIN CALDWELL MD May 08, 2019 13:55
[2019-05-08] MEDS ORDERED: ceFAZolin 2GM PREMIX 2 GM/50 ML BAG IV ONE (14:00)
[2019-05-08] MEDS ORDERED: SEVOFLURANE 61 TO 120 MINUTES. IH ONE (15:26)
--- NOTE | 2019-05-08 15:31 | PDOC4 ---
Operative Note Operative Note Date of procedure: May 08, 2019 Preoperative diagnosis: Other intra-articular fracture of lower end of left radius, initial encounter for closed fracture S52.572A Postoperative diagnosis: Same. Procedure: left wrist open treatment of distal radial intra-articular fracture with internal fixation of 3 or more fragments, CPT 64079 Surgeon: Justin Caldwell MD. Pumper Gauger: JV Ramírez (Annie) Anesthesia: General Estimated blood loss: 25 mL Complications: None Specimens: None Drains: None Tourniquet time: 35 minutes Tourniquet pressure: 275 mm Hg mm Hg Implants: Acumed Acu-Loc 2 Plating System Indications for procedure: The patient is a 49-year-old who fell fracturing the left wrist. X-rays showed an intraarticular fracture with displacement and sh ortening. I recommended open treatment with internal fixation. We talked about potential risks of surgery such as bleeding, infection, stiffness, need for hardware removal or other potential surgical or anesthetic complications. The patient stated understanding of the risks, benefits and alternatives. Written consent was obtained and the patient desired to proceed with surgery. PROCEDURE IN DETAIL: The patient was identified in the preoperative holding area. The correct left wrist was marked by me. The patient was taken to the operating room, where a general anesthetic was used. Preoperative antibiotics were given intravenously. A timeout procedure was performed. A padded tourniquet was placed on the upper left arm. The limb was prepared with Chloraprep Surgical Solution, and sterile drapes were applied. An Esmarch bandage was used to exsanguinate the limb and the tourniquet was inflated. The volar approach of Nito was used distally. Sharp dissection was used and Bovie electrocautery was used as needed for hemostasis. The flexor carpi radialis tendon was retracted ulnarly to protect the median nerve. The brachioradialis was retracted radially to protect the radial artery. My assistant professor of mathematics held small Hohmann retractors on the radial side of the distal fragment and ulnar side of the proximal fragment to help maintain reduction. A Weitlaner retractor was also placed. Subperiosteal dissection of the pronator quadratus was performed after an L incision was made and the muscle was reflected across the fracture site. The fracture was easily identified but markedly displaced, comminuted and unstable. I performed a reduction, and using longitudinal traction, palmar angulation and ulnar deviation. While my assistant professor of mathematics held the reduction, I placed a Daniela wire for preliminary fixation. Due to the poor bone quality, a second K wire was required for preliminary stability. The image intensifier was used throughout the procedure. All of the images were interpreted intraoperatively by me. I used the left distal fixation standard width long plate. I placed a cortical screw proximally and used the image intensifier to adjust the position of the plate and readjusted the position several times for optimum positioning. I placed additional cortex locking screws proximally. I then applied distal locking screws through the guide and measured each screw length. I confirmed the intraarticular reduction the image intensifier. After satisfactory reduction and satisfactory fixation with all the screws, final images were taken. Copious i rrigation was used. The tourniquet was released and Bovie electrocautery was used for hemostasis. Local anesthetic was injected. The incision was closed with 3-0 Vicryl in the subcutaneous tissues and 3-0 Prolene in the skin by my assistant professor of mathematics. Xeroform and a sterile dressing and a volar splint were applied by my assistant professor of mathematics. Needle and sponge counts were correct. There were no apparent complications. JUSTIN CALDWELL MD May 08, 2019 15:31
[2019-05-08] MEDS: fentaNYL PF VIAL 100 MCG/2 ML VIAL IV PRN ×4 (15:58→16:15)
[2019-05-08] MEDS: MORPHINE SULFATE 2 MG/ML VIAL. IV PRN ×5 (16:03→17:00)
[2019-05-08] MEDS ORDERED: oxyCODONE IR 5 MG TABLET ONE (17:26)
[2019-05-08 17:32] VITALS: BP 148/95
[2019-05-08] MEDS ORDERED: oxyCODONE ER 15 MG TAB.ER.12H PO SCH (21:00)
== END 2019-05-08 18:43 | disposition home or self-care (01) ==
LOC: SURG 12:36
PROVIDERS: ATTEND Orthopaedic Surgery
DX: S52.572A Other intraarticular fracture of lower end of left radius, initial encounter for closed fracture (principal); F41.9 Anxiety disorder, unspecified; F32.9 Major depressive disorder, single episode, unspecified; E11.9 Type 2 diabetes mellitus without complications; Z90.49 Acquired absence of other specified parts of digestive tract; Z98.890 Other specified postprocedural states; Z88.8 Allergy status to other drugs, medicaments and biological substances; Z79.84 Long term (current) use of oral hypoglycemic drugs; W19.XXXA Unspecified fall, initial encounter; Y93.89 Activity, other specified; Y92.89 Other specified places as the place of occurrence of the external cause; Y99.8 Other external cause status
CPT/HCPCS: 25609; A7015; C1713; C1769; J0330; J0696; J1100; J1170; J2001; J2270; J2405; J2704; J3010; J3490; J7120

== ENCOUNTER → 2022-01-23 | Emergency (ER) | payer MEDICARE, MEDICAID ==
[~2022-01-23] VITALS: Ht 160 cm; Wt 69.6 kg
[~2022-01-23] MED LIST changes: -BUPIVACAINE-EPI 0.25%-1:200000 MPF 30 ML VIAL. INJ ONE; +CYCL10TA19 PO; -CYCL10TA2 PO; +HYDR-2761 PO; +HYDROcodone/APAP 5/325MG 1 TAB TABLET PO ONE; -HYDROmorphone 2 MG/ML VIAL IV PRN; -IV RINGERS,LACTATED 1000ML 1,000 ML IV SCH; -LIDOCAINE 1% PF 2 ML VIAL. ID PRN; -LISI-334 PO; +LISI20TA18 PO; -ONDANSETRON PF 4 MG/2 ML VIAL. IV PRN; +POTA20TA4 PO; -POTA20TA82 PO; -PROCHLORPERAZINE 10 MG/2 ML VIAL. IV PRN; -fentaNYL PF VIAL 100 MCG/2 ML VIAL IV PRN
[2022-01-23 22:53] VITALS: BP 136/74
--- NOTE | 2022-01-23 23:47 | PHYS DOC ---
Past Medical History Past Medical History: Asthma, Bipolar, CHF, Diabetes-Type II, Fibromyalgia, Hypertension, Other Additional Past Medical Histor: SARCOIDOSIS Past Surgical History: Gastric Bypass Additional Past Surgical Histo: left breast, right ACL and meniscus, defib/pacemaker Smoking Status: Current Every Day Smoker Alcohol Use: None Drug Use: None General Adult EDM: Chief Complaint: ELBOW PROBLEM HPI: HPI: Patient is a 51 year old female with history of hypertension, diabetes type 2, CHF, presenting to the ED today to be evaluated after falling. Patient states she was changing the daughter's curtain standing on the bed, she states she fell hitting her left elbow on the floor. Patient denies any loss of consciousness. Reports 8 out of 10 sharp intermittent left elbow pain worse on range of motion. Denies anything relieving the pain. Review of Systems: Review of Systems: Constitutional: Denies fever or chills. [] Musculoskeletal: Reports left elbow pain Integument: Denies rash. [] Neurologic: Denies headache, focal weakness or sensory changes. [] Psychiatric: Denies depression or anxiety. [] Heart Score: C/O Chest Pain: N/A Risk Factors: Risk Factors: DM, Current or recent (<one month) smoker, HTN, HLP, family history of CAD, obesity. Risk Scores: Score 0 - 3: 2.5% MACE over next 6 weeks - Discharge Home Score 4 - 6: 20.3% MACE over next 6 weeks - Admit for Clinical Observation Score 7 - 10: 72.7% MACE over next 6 weeks - Early Invasive Strategies Current Medications: Current Medications Medications (Trade) Dose Ordered Sig/[facility] Start Time Stop Time Status Last Admin Dose Admin Acetaminophen/ Hydrocodone Bitart (Lortab 5/325) 1 tab 1X ONCE 01/23/22 23:45 01/23/22 23:46 Allergies: Allergies: Allergies Coded Allergies Type Severity Reaction Last Updated Verified hydralazine Allergy Intermediate 05/04/19 Yes isosorbide Allergy Intermediate 05/04/19 Yes sumatriptan Allergy Intermediate 05/04/19 Yes zolmitriptan Allergy Intermediate 05/04/19 Yes adhesive tape Adverse Reaction Intermediate Rash 05/07/19 Yes Physical Exam: PE: Constitutional: Well developed, well nourished, no acute distress, non-toxic appearance. [] Skin: Warm, dry, no erythema, no rash. [] Back: No tenderness, no CVA tenderness. [] Extremities: Left elbow with no obvious deformity, soft tissue swelling noted on the olecranon. Tenderness on palpation of the left olecranon, limited range of motion to the left elbow especially extension but patient able to extend with help. Adequate plantarflexion and dorsiflexion of the left forearm. Adequate radial, medial, ulnar sensation to the left fingers. +2 left radial pulse. Cap refill less than 2 seconds to left fingers Neurologic: Alert and oriented X 3, normal motor function, normal sensory function, no focal deficits noted. [] Psychologic: Affect normal, judgement normal, mood normal. [] Current Patient Data: Vital Signs: Vital Signs Date Time Temp Pulse Resp B/P (MAP) Pulse Ox O2 Delivery O2 Flow Rate FiO2 01/23/22 22:53 98.2 96 16 136/74 (94) 98 Room Air 98.2 EKG: EKG: [] Radiology/Procedures: Radiology/Procedures: []PROCEDURE: ELBOW LEFT 3V 3 view left elbow HISTORY: Pain AP and oblique views The visualized osseous structures appear normal. IMPRESSION: Negative examination. Electronically signed by: Justin Hernández III, MD (01/23/2022 11:53 PM) [facility] DICTATED and SIGNED BY: JUSTIN HERNÁNDEZ III, MD DATE: 01/23/22 377 Course & Med Decision Making: Course & Med Decision Making Pertinent Labs and Imaging studies reviewed. (See chart for details) This a 51-year-old female patient presented to the ED today with left elbow pain after falling. Left elbow x-rays are negative for fracture. Provided Ortho for follow-up she states she see's Dr. Amador Orthopedic doctor. Ice elevation encouraged, she has oxycodone at home for pain. Dragon Disclaimer: Dragon Disclaimer: This electronic medical record was generated, in whole or in part, using a voice recognition dictation system. Departure Departure Impression: Primary Impression: Contusion of elbow, left Qualified Codes: S50.02XA - Contusion of left elbow, initial encounter Additional Impression: Fall Qualified Codes: W19.XXXA - Unspecified fall, initial encounter Disposition: HOME / SELF CARE / HOMELESS Condition: STABLE Referrals: DONALDO DURAN MD (PCP) JUSTIN AMADOR MD call him tomorrow and set up a follow up appointment Patient Instructions: Elbow Contusion Additional Instructions: You were evaluated in the emergency room, your left elbow xrays are negative for any acute findings. Try to ice and elevate the elbow. Follow-up with the your own orthopedic doctor, call him tomorrow for a follow-up appointment VICTORIA ANAND APRN January 23, 2022 23:47
--- NOTE | 2022-01-23 23:55 | RAD ---
3 view left elbow HISTORY: Pain AP and oblique views The visualized osseous structures appear normal. IMPRESSION: Negative examination. Electronically signed by: Magan Huerta III, MD (01/23/2022 11:53 PM) [facility]
== END | disposition home or self-care (01) ==
LOC: ER 22:00
DX: S50.02XA Contusion of left elbow, initial encounter (principal); F31.9 Bipolar disorder, unspecified; J45.909 Unspecified asthma, uncomplicated; I11.0 Hypertensive heart disease with heart failure; I50.9 Heart failure, unspecified; Z95.810 Presence of automatic (implantable) cardiac defibrillator; E11.9 Type 2 diabetes mellitus without complications; Z88.8 Allergy status to other drugs, medicaments and biological substances; W18.09XA Striking against other object with subsequent fall, initial encounter; Y93.89 Activity, other specified; Y92.89 Other specified places as the place of occurrence of the external cause; Y99.8 Other external cause status
CPT/HCPCS: 29105; 73080; 99283